=== PATIENT | male | born 1970 | race Caucasian/White ===

== ENCOUNTER 2019-09-02 08:11 | Emergency (ER) | payer OTHER, SELFPAY ==
[2019-09-02 08:23] VITALS: BP 132/86; PULSE 78; RESP 16; TEMP 36.5; O2SAT 99
--- NOTE | 2019-09-02 08:47 | ED.URI ---
HPI - URI/Sore Throat General Chief Complaint: Upper Respiratory Infection Stated Complaint: Sore Throat Time Seen by Provider: 09/02/19 08:47 Source: patient and RN notes reviewed Mode of arrival: ambulatory Limitations: no limitations History of Present Illness HPI Narrative: 48-year-old male who presents to [facility] care with complaints of 3-day history of sore throat,states positive exposure to strep from office.Patient states that he has been feverish with chills since Saturday, states some clear yellowish tinged nasal drainage and occasional cough with expectoration of brownish mucous. Patient states that pain to throat is 6/10 increases with swallowing. Patient states that he has taken Ibuprofen and Tylenol for his pain and fevers. Reports he did not receive a flu shot this year. MD elicited complaint: fever, cough, sore throat and rhinorrhea Pertinent past history: other (previous strep) Onset (ago): day(s) (3) Consistency: intermittent Severity: moderate Pain scale (0-10): 6 Description of mucous: yellow Able to tolerate fluids by mouth: Yes Exacerbating factors: swallowing Relieving factors: nothing Context: sick contacts and recent travel Associated symptoms: fever, chills, rhinorrhea, nasal congestion, sore throat and cough Treatments prior to arrival: acetaminophen and ibuprofen Related Data Allergies Allergy/AdvReac Type Severity Reaction Status Date / Time No Known Allergies Allergy Mild Verified 09/02/19 08:34 Review of Systems Review of Systems: Narrative: CONSTITUTIONAL: Positive fever, chills, or sweats. EYES: Denies visual changes, redness, or discharge. ENT: positive rhinorrhea, congestion, sore throat, no otalgia. CARDIOVASCULAR: Denies chest pain, palpitations, or edema. RESPIRATORY:positive cough denies dyspnea. GASTROINTESTINAL: Denies abdominal pain, nausea, vomiting, or diarrhea. GENITOURINARY: Denies dysuria or hematuria. SKIN: Denies rash or itching. MUSCULOSKELETAL: Denies back pain, joint pain, or myalgia. NEUROLOGIC: Denies headache, numbness, or weakness. PSYCHIATRIC: Denies anxiety or depression. All systems reviewed & are unremarkable except as noted in HPI and below PMFSH Past Medical History Medical History (Updated 09/05/19 @ 15:53 by Blanca Vergara NP) Lumbar vertebral fracture Strep throat Social History Social History (Updated 09/02/19 @ 08:58 by Blanca Vergara NP) Smoking status: Never smoker Living arrangements: with family Gender identity (if verbalized by the patient): Male Comments At time of signature, agree with nursing past medical, social history. There is no relevant family history pertinent to the presenting complaint Exam Narrative: Exam Narrative: CONSTITUTIONAL: well appearing, no acute distress, well nourished EYES: Denies visual changes, redness, or discharge.PERRLA and EOMI intact no eye drainage or redness ENT: Nares red with yellow rhinorrhea, no epitaxis, TM's normal with good light reflex, throat red with white lesions.neck supple with lymphadenopathy CARDIOVASCULAR: Denies chest pain, palpitations, or edema heart rate and rhythm normal no murmurs noted, no edema strong pedal pulses. RESPIRATORY: Denies cough or dyspnea.Lungs clear to auscultation SAO2 99% on room air GASTROINTESTINAL: Denies abdominal pain, nausea, vomiting, or diarrhea.Abdomen soft with no pain to abdomen on palpation GENITOURINARY: Denies dysuria or hematuria. SKIN: Denies rash or itching.skin warm and dry no rash MUSCULOSKELETAL: Denies any acute back pain, joint pain, or myalgia. moves all extremities on own power, pulses strong to all extremities. NEUROLOGIC: Denies headache, numbness, or weakness.alert and orients X3 PSYCHIATRIC: Denies anxiety or depression, normal thought process Course Vital Signs Vital signs: Vital Signs Temperature 36.5 C 09/02/19 08:23 Pulse Rate 78 09/02/19 08:23 Respiratory Rate 16 09/02/19 08:23 Blood Pressure 132/86 09/02/19 0
== END 2019-09-02 09:09 | disposition home or self-care (01) ==
PROVIDERS: Emergency Provider Registered Nurse
DX: J02.0 Streptococcal pharyngitis (principal)
CPT/HCPCS: 87880; 99213; G0463

== ENCOUNTER → 2021-10-30 13:25 | Outpatient (CLI) | payer OTHER, SELFPAY ==
--- NOTE | ~2021-10-30 | US_ITS ---
EXAMINATION: US soft tissue groin RT DATE: 10/30/2021 13:44 INDICATION: Right groin pain. TECHNIQUE: Multiple grayscale and Doppler ultrasound images of the right inguinal region were obtaine d. COMPARISON: CT abdomen and pelvis 08/09/2007 FINDINGS: There is no abnormal mass, lymphadenopathy, or hernia in the right inguinal region. IMPRESSION: 1. No abnormality in the right inguinal region. Reviewed, dictated and finalized at location B.
== END ==
PROVIDERS: PCP Nurse Practitioner Family; Visit Provider Nurse Practitioner Family
DX: R10.2 Pelvic and perineal pain (principal)
CPT/HCPCS: 76882

== ENCOUNTER 2022-08-09 02:52 | Emergency (ER) | payer OTHER, SELFPAY ==
--- NOTE | ~2022-08-09 | CT_ITS ---
Non-contrast CT scan of the Abdomen and Pelvis Clinical indication: Kidney stone Technique: 5 mm axial scans were obtained through the abdomen and pelvis without intravenous or oral contrast. Dose reduction technique was used on this scan by utilizing automated exposure control and iterative reconstruction technique. The dose-length product (DLP) was 237.05 mGy-cm. Findings: Images through the lung bases reveal no abnormalities. There is no evidence of renal or ureteral calculi. The kidneys and the ureters are nondilated. The liver, spleen, pancreas, gallbladder, and adrenals appear normal. There is no aortic aneurysm. There is no evidence of bowel obstruction. Images through the pelvis were performed. There is no evidence of ascites or lymphadenopathy. 3 mm ur inary bladder stone present. Prostate gland and seminal vesicles are unremarkable. Impression: 3 mm urinary bladder stone. No other significant findings. Reviewed, dictated and finalized at [facility]. K TURNER Impression: 3 mm urinary bladder stone. No other significant findings.
[2022-08-09 02:59] VITALS: PULSE 87; RESP 20; O2SAT 100
--- NOTE | 2022-08-09 03:02 | ED.GENADULT ---
HPI - General Adult General Chief complaint: Urogenital-Male Stated complaint: flank pain Time Seen by Provider: 08/09/22 02:57 History of Present Illness HPI narrative: 51-year-old male presents for evaluation of acute onset right flank pain and vomiting for the past 3 hours. Related Data Allergies Allergy/AdvReac Type Severity Reaction Status Date / Time No Known Allergies Allergy Mild Verified 09/02/19 08:34 Review of Systems Review of Systems: CONSTITUTIONAL: Denies fever, chills, or sweats. EYES: Denies visual changes, redness, or discharge. ENT: Denies rhinorrhea, congestion, sore throat, or otalgia. CARDIOVASCULAR: Denies chest pain, palpitations, or edema. RESPIRATORY: Denies cough or dyspnea. GASTROINTESTINAL: Denies abdominal pain, nausea, vomiting, or diarrhea. GENITOURINARY: Denies dysuria or hematuria. SKIN: Denies rash or itching. MUSCULOSKELETAL: Denies back pain, joint pain, or myalgia. NEUROLOGIC: Denies headache, numbness, or weakness. PSYCHIATRIC: Denies anxiety or depression. PMFSH Past Medical History Medical History Lumbar vertebral fracture Strep throat Social History Social History Smoking status: Never smoker Living arrangements: with family Gender identity (if verbalized by the patient): Male Exam Narrative: GENERAL: Well-appearing, well-nourished, and in no acute distress. HEAD: Normocephalic, atraumatic. EYES: PERRLA and EOMI. ENT: Nares clear, no rhinorrhea or epistaxis. Mucous membranes moist. NECK: Supple. CHEST: Clear to auscultation. No respiratory distress. HEART: Regular rate and rhythm. No murmur heard. Normal peripheral pulses. ABDOMEN: Soft, nontender, nondistended, normal active bowel sounds. EXTREMITIES: Normal range of motion. No edema. SKIN: Warm, dry, no rash. NEURO: No focal deficits. Alert and oriented x3. PSYCH: Normal mood and affect. Course Vital Signs Vital signs: Vital Signs Pulse Rate 87 08/09/22 02:59 Respiratory Rate 20 08/09/22 02:59 Pulse Oximetry 100 08/09/22 02:59 Pulse Rate 87 08/09/22 02:59 Respiratory Rate 20 08/09/22 02:59 Pulse Oximetry 100 08/09/22 02:59 Medical Decision Making MDM Narrative Medical decision making narrative: CT abdomen and pelvis with 0.2 cm calculus in the urinary bladder, minimal right ureter correct this is. Pain is well controlled. Patient is stable for DC home. Vital Signs Vital Signs: Vital Signs Pulse Rate 87 08/09/22 02:59 Respiratory Rate 20 08/09/22 02:59 Pulse Oximetry 08/09/22 02:59 Pulse Rate 87 08/09/22 02:59 Respiratory Rate 20 08/09/22 02:59 Pulse Oximetry 08/09/22 02:59 Lab Data 08/09/22 03:12 08/09/22 03:12 Labs: Lab Results 08/09/22 08/09/22 Range/Units 03:12 03:12 WBC 5.6 (4.5-10.0) K/mm3 RBC 5.26 (4.6-6.20) M/mm3 Hgb 15.2 (14.0-18.0) g/dL Hct 45.2 (42.0-52.0) % MCV 85.9 (80-100) fl MCH 28.9 (26-34) pg MCHC 33.6 (32-36) g/dl RDW 12.3 (11.5-14.5) % Plt Count 255 (150-375) k/mm3 MPV 9.4 (7.4-10.4) fl Immature Gran % (Auto) 0.7 H (0-0.5) % Neut % (Auto) 54.9 (45.5-73.1) % Lymph % (Auto) 30.2 (18.3-44.2) % [place] % (Auto) 10.3 H (2.6-8.5) % Eos % (Auto) 3.0 (0-4.4) % Baso % (Auto) 0.9 (0.2-1.2) % Lymph # (Auto) 1.70 (0.9-3.2) K/mm3 [place] # (Auto) 0.6 (0.1-0.6) K/mm3 Eos # (Auto) 0.2 (0-0.3) K/mm3 Baso # (Auto) 0.1 (0.0-0.1) K/mm3 Abs Immat Gran (auto) 0.04 H (0.00-0.031) K/mm3 Absolute Neuts (auto) 3.1 (1.3-6.7) K/mm3 Absolute Nucleated RBC 0.0 (0.0-0.012) K/mm3 Nucleated RBC % 0.0 (0.0-0.2) % Sodium 142 (137-145) mmol/L Potassium 3.8 (3.4-5.0) mmol/L Chloride 108 H (98-107) mmol/L Carbon Dioxide 23 (22-30) mmol/L Anion Gap 11 (8-16) mmol/L BUN 17 (9-
[2022-08-09] MEDS: MORPHINE SULFATE (*CRX) 4 MG/ML INJ IV PUSH (03:06)
[2022-08-09] MEDS: ONDANSETRON INJ 4 MG/2 ML VIAL IV PUSH (03:09)
[2022-08-09] MEDS: KETOROLAC 30 MG/ML VIAL (*BKC) 15 MG IV PUSH (03:09)
[2022-08-09] MEDS: SODIUM CHLORIDE 0.9% IV 1,000 ML 999 ML IV CONT (03:09)
[2022-08-09 03:16] LABS: Basophils Absolute Auto 0.1 K/mm3 (0.0-0.1); Basophils Percent Auto 0.9 % (0.2-1.2); Eosinophils Absolute Auto 0.2 K/mm3 (0-0.3); Hematocrit 45.2 % (42.0-52.0); Hemoglobin 15.2 g/dL (14.0-18.0); Immature Granulocyte Absolute 0.04 K/mm3 (0.00-0.031); Immature Granulocyte Percent A 0.7 % (0-0.5); Lymphocytes Percent Auto 30.2 % (18.3-44.2); Mean Corpuscular HGB Conc 33.6 g/dl (32-36); Mean Corpuscular Hemoglobin 28.9 pg (26-34); Mean Corpuscular Volume 85.9 fl (80-100); Mean Platelet Volume 9.4 fl (7.4-10.4); Monocytes Absolute Auto 0.6 K/mm3 (0.1-0.6); Monocytes Percent Auto 10.3 % (2.6-8.5); Neutrophils Absolute Auto 3.1 K/mm3 (1.3-6.7); Neutrophils Percent Auto 54.9 % (45.5-73.1); Platelet Count Result 255 k/mm3 (150-375); Red Blood Count 5.26 M/mm3 (4.6-6.20); Red Cell Distribution Width 12.3 % (11.5-14.5); White Blood Count 5.6 K/mm3 (4.5-10.0)
[2022-08-09 03:40] LABS: Anion Gap 11 mmol/L (8-16); Blood Urea Nitrogen 17 mg/dL (9-20); Calcium 8.6 mg/dL (8.4-10.2); Carbon Dioxide 23 mmol/L (22-30); Chloride 108 mmol/L (98-107); Estimated CRCL calculation 85 ml/min; Estimated Glomerular Filt Rate > 60; Glucose 123 mg/dL (65-110); Potassium 3.8 mmol/L (3.4-5.0); Sodium 142 mmol/L (137-145)
[2022-08-09 04:57] LABS: Appearance Urine Clear (Clear); Bacteria Urine Trace /hpf; Bilirubin Urine Negative (Negative); Blood Urine 3+ (Negative); Color Urine Yellow (Yellow); Glucose Urine UA Negative (Negative); Ketones Urine Negative (Negative); Leukocyte Esterase Ur Negative LEU/UL (Negative); Mucus Urine Rare /lpf; Nitrate Urine Negative (Negative); Protein Urine Trace mg/dL (Negative); RBC Urine >75 /hpf (0-2); Urobilinogen Urine 0.2 mg/dL (<2.0)
[2022-08-09 05:03] VITALS: BP 133/89; PULSE 89; RESP 18; O2SAT 99
[2022-08-09 05:06] LABS: Add Urine Microscopic? YES
== END 2022-08-09 05:00 | disposition home or self-care (01) ==
PROVIDERS: Emergency Provider Emergency Medicine; PCP Nurse Practitioner Family
DX: N21.0 Calculus in bladder (principal)
CPT/HCPCS: 36415; 74176; 80048; 81001; 85025; 96361; 96365; 96375; 99284; J0131; J1885; J2270; J2405; J7030

== ENCOUNTER → 2022-10-08 16:18 | Outpatient (CLI) | payer OTHER, SELFPAY ==
--- NOTE | ~2022-10-08 | XR_ITS ---
Cervical Spine: AP, lateral, open-mouth views Clinical History: Pain COMPARISON: 10/05/2016 Findings: The normal lordotic curve is maintained. No acute fracture or subluxation seen. There is mi ld to moderate degenerative disc change at C4-C5, C5-C6, and C6-C7. There is mild facet arthropathy a t C3-C4, C4-C5, C5-C6. Pre-vertebral soft tissues are unremarkable. Impression: Mild degenerative spondylosis, as detailed above, similar to prior exam. Reviewed, dictated and finalized at location M. Impression: Mild degenerative spondylosis, as detailed above, similar to prior exam.
== END ==
DX: M47.892 Other spondylosis, cervical region (principal)
CPT/HCPCS: 72040

== ENCOUNTER 2022-12-28 01:37 | Day surgery (SDC) | payer OTHER, SELFPAY ==
[2022-11-29 12:20] VITALS: BMI 29.0
--- NOTE | 2022-12-27 09:13 | PM.HPGS ---
History of Present Illness History of Present Illness Consent: Risks, benefits, and alternatives have been discussed and questions answered. Patient agrees to proceed with procedure. Chief complaint: neoplasm screening Narrative: Mike Varela is a 52 year old male referred for colon cancer screening. Review of Systems Review of Systems: All systems reviewed & are unremarkable except as noted in HPI and below PMFSH Past Medical History Medical History Lumbar vertebral fracture Overweight (BMI 25.0-29.9) Strep throat Social History Social History Smoking status: Never smoker Alcohol intake: current Drinks per week: 5 Substance use type: does not use Living arrangements: with family Gender identity (if verbalized by the patient): Male Spiritual care concerns: No Meds Home Medications and Allergies Home Medications Medication Instructions Recorded Confirmed Type No Home Medications 11/29/22 12/28/22 History Allergies Allergy/AdvReac Type Severity Reaction Status Date / Time No Known Allergies Allergy Mild Verified 12/28/22 08:57 Exam Const: General: alert Orientation/consciousness: patient oriented x3 Resp: Auscultation: clear to auscultation bilaterally Cardio: Rhythm: regular rhythm GI: GI Palp: Yes Soft to palpation and No Tenderness to palpation present (GI) Neuro: General: patient oriented x3 Assessment and Plan Assessment and plan (1) Colon cancer screening: Code(s): Z12.11 - Encounter for screening for malignant neoplasm of colon Status: Acute Assessment and Plan: Colonoscopy with possible biopsy or polypectomy or cautery or injection of substances.
--- NOTE | 2022-12-28 07:45 | WPDANESEPPF ---
Anes - Initial Pre Proc Eval Procedure: Operation Date: 12/28/22 10:00 Proposed Procedures p Screening Colonoscopy - Js Borja MD Date/Time: 12/28/22 07:45 Surgeon: Js Borja MD Pre Op Diagnosis: neoplasm screening Patient Data Age: 52 Gender: M Height: 1.7 m Weight: 84 kg Allergies Allergy/AdvReac Type Severity Reaction Status Date / Time No Known Allergies Allergy Mild Verified 12/28/22 08:57 Home Medications Medication Instructions Recorded Confirmed Type No Home Medications 11/29/22 12/28/22 History Patient hx anesthesia problems: none Family hx anesthesia problems: none Results Review: All pre-operative results and documents have been reviewed as part of the pre-operative evaluation. [facility] Past Medical History Medical History Lumbar vertebral fracture Overweight (BMI 25.0-29.9) Strep throat Social History Social History Smoking status: Never smoker Alcohol intake: current Drinks per week: 5 Substance use type: does not use Living arrangements: with family Gender identity (if verbalized by the patient): Male Spiritual care concerns: No Anes - Eval Final PreProcedure Day of Procedure 12/28/22 07:45 Patient weight: overweight Heart: regular rate and rhythm Lungs: clear to auscultation and normal air movement Airway: Mallampati scale class II Neurological: alert and oriented Last oral intake: >/= 8 hours ASA classification: II Emergent: no Anesthetic plan: proceed Anesthesia type and monitoring: general GIVS Results Review: All pre-operative results and documents have been reviewed as part of the pre-operative evaluation. Informed Consent: The patient's anesthetic plan and its attendant risks and benefits were discussed with the patient/family/POA. Questions were solicited and answers provided to the satisfaction of the patient/family/POA.
[2022-12-28 08:58] VITALS: BP 140/94; PULSE 62; RESP 20; TEMP 36.3; O2SAT 100
[2022-12-28] MEDS: LACTATED RINGERS 1,000 ML 150 ML IV CONT (09:12)
[2022-12-28] MEDS: SIMETHICONE ORAL SUSPENSION 20 MG/0.3 ML 30 ML BOTTLE 0.6 ML IRRIGATION (10:07)
[2022-12-28 10:17] VITALS: BP 108/77; PULSE 56; RESP 20; O2SAT 100
[2022-12-28 10:27] VITALS: BP 110/74; PULSE 51; RESP 20; O2SAT 100
[2022-12-28 10:37] VITALS: BP 112/76; PULSE 59; RESP 20; O2SAT 100
== END 2022-12-28 10:44 | disposition home or self-care (01) ==
PROVIDERS: Visit Provider Internal Medicine Gastroenterology
PROC: 0DJD8ZZ Inspection of Lower Intestinal Tract, Via Natural or Artificial Opening Endoscopic (ICD-10-PCS; CPT 45378; principal; 2022-12-28 10:00)
DX: Z12.11 Encounter for screening for malignant neoplasm of colon (principal); K57.30 Diverticulosis of large intestine without perforation or abscess without bleeding
CPT/HCPCS: 45378; J2704; J7120

== ENCOUNTER 2023-01-18 07:03 | Emergency (ER) | payer OTHER, SELFPAY ==
[2023-01-18] VITALS (16 sets, daily range): BP systolic 122–140; BP diastolic 75–96; PULSE 58–72; RESP 13–21; TEMP 36.1; O2SAT 94–100
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
[2023-01-18] MEDS: HYDROmorphone HCL INJ (*CRX) 1 MG/ML SYR 0.5 MG IV PUSH (08:11)
[2023-01-18] MEDS: ONDANSETRON INJ 4 MG/2 ML VIAL IV PUSH (08:11)
[2023-01-18] MEDS: SODIUM CHLORIDE 0.9% IV 1,000 ML 999 ML IV CONT (08:12)
== END 2023-01-18 09:41 | disposition short-term general hospital (02) ==
PROVIDERS: Emergency Provider Emergency Medicine; PCP Nurse Practitioner Family
DX: S29.9XXA Unspecified injury of thorax, initial encounter (principal); S40.812A Abrasion of left upper arm, initial encounter; S40.811A Abrasion of right upper arm, initial encounter; S80.812A Abrasion, left lower leg, initial encounter; S80.811A Abrasion, right lower leg, initial encounter; S09.93XA Unspecified injury of face, initial encounter; E66.3 Overweight; Z68.27 Body mass index [BMI] 27.0-27.9, adult; V23.49XA Other motorcycle driver injured in collision with car, pick-up truck or van in traffic accident, initial encounter
CPT/HCPCS: 71045; 96361; 96374; 96375; 99284; 99285; J1170; J2405; J7030